=== PATIENT | male | born 1970 | race Caucasian/White ===

== ENCOUNTER 2017-07-07 06:44 | Emergency (ER) | payer SELFPAY ==
[~2017-07-07] VITALS: Ht 172.7 cm; Wt 102.5 kg
[2017-07-07 07:00] VITALS: Ht 172.7 cm; Wt 102.5 kg
[2017-07-07 08:02] VITALS: BP 144/89
== END 2017-07-07 08:02 | disposition home or self-care (01) ==
LOC: ED 06:44
DX: T45.2X5A Adverse effect of vitamins, initial encounter (principal); I10 Essential (primary) hypertension; Y92.89 Other specified places as the place of occurrence of the external cause

== ENCOUNTER 2017-08-27 20:47 | Inpatient (IN) | payer MEDICAID ==
[~2017-08-27] VITALS: Ht 172.7 cm; Wt 105.7 kg
[2017-08-27 21:18] VITALS: Ht 172.7 cm; Wt 105.7 kg
[2017-08-27 22:40] LABS: PLATELET COUNT 194 x10^3mcL (130-400); RED CELL DISTRIBUTION WIDTH 12.8 % (11.5-14.5)
[2017-08-27 22:47] LABS: BASOPHIL % 0 % (0-2)
[2017-08-27 23:02] LABS: CALCIUM 8.9 mg/dL (8.5-10.1); CARBON DIOXIDE 23.4 mmol/L (21-32); CHLORIDE SERUM 101 mmol/L (98-107); CREATININE SERUM 1.1 mg/dL (0.7-1.3); GFR1 > 60 mL/min; GLUCOSE SERUM 263 mg/dL (74-106); POTASSIUM SERUM 5.4 mmol/L (3.5-5.1); SODIUM SERUM 135 mmol/L (136-145)
[2017-08-27 23:06] LABS: ALBUMIN 3.9 g/dL (3.4-5.0); ALKALINE PHOSPHATASE 85 U/L (46-116); ALT/SGPT 32 U/L (16-63); AST/SGOT 18 U/L (15-37); BILIRUBIN TOTAL 0.7 mg/dL (0.20-1.00); LIPASE 63 IU/L (73-393); TOTAL PROTEIN, SERUM 7.8 g/dL (6.4-8.2)
[2017-08-28] MEDS ORDERED: DICLOXACILLIN500 MG PO (02:44)
[2017-08-28] MEDS ORDERED: SUDOGEST60 MG PO (02:44)
[2017-08-28 04:06] LABS: T3 TOTAL 0.95 ng/mL
[2017-08-28 04:08] LABS: FREE T4 0.95 ng/dL (0.76-1.46); FREE THYROXINE INDEX 2.5 ug/dL (1.4-4.5); T4(THYROXINE) 7.8 ug/dL (4.7-13.3)
[2017-08-28 04:29] VITALS: BP 132/87
[2017-08-28 04:31] LABS: MAGNESIUM 2.3 mg/dL (1.8-2.4)
[2017-08-28 04:34] LABS: CHOLESTEROL/HDL RATIO 4.1
[2017-08-28 05:51] LABS: BASOPHIL % 0.2 % (0-2); PLATELET COUNT 194 x10^3mcL (130-400); RED CELL DISTRIBUTION WIDTH 12.9 % (11.5-14.5)
[2017-08-28 06:10] LABS: CALCIUM 8.4 mg/dL (8.5-10.1); CARBON DIOXIDE 23.2 mmol/L (21-32); CHLORIDE SERUM 103 mmol/L (98-107); CREATININE SERUM 0.9 mg/dL (0.7-1.3); GFR1 > 60 mL/min; GLUCOSE SERUM 159 mg/dL (74-106); POTASSIUM SERUM 3.9 mmol/L (3.5-5.1); SODIUM SERUM 134 mmol/L (136-145)
[2017-08-28 06:35] LABS: microscopic required? NO
[2017-08-28 07:51] LABS: UA SPECIFIC GRAVITY 1.015 (1.005-1.035); urine erythrocyte NEGATIVE (NEGATIVE)
[2017-08-28 08:43] LABS: AMPHETAMINE QUAL UR NONE DETECTED (NEG <=1000)
[2017-08-28 08:48] VITALS: BP 128/80
[2017-08-28 12:41] VITALS: BP 111/70
[2017-08-28 16:35] VITALS: BP 125/78
[2017-08-28 20:53] VITALS: BP 98/63
[2017-08-29 05:48] VITALS: BP 96/65
[2017-08-29 07:05] LABS: CARBON DIOXIDE 25.9 mmol/L (21-32); CHLORIDE SERUM 107 mmol/L (98-107); CREATININE SERUM 0.9 mg/dL (0.7-1.3); GFR1 > 60 mL/min; GLUCOSE SERUM 106 mg/dL (74-106); PHOSPHOROUS 4.4 mg/dL (2.5-4.9); POTASSIUM SERUM 3.7 mmol/L (3.5-5.1); SODIUM SERUM 142 mmol/L (136-145)
[2017-08-29 07:13] LABS: BASOPHIL % 0.5 % (0-2); PLATELET COUNT 185 x10^3mcL (130-400)
[2017-08-29 09:49] VITALS: BP 102/63
[2017-08-29] MEDS ORDERED: MECLIZINE HCL12.5 MG PO (11:28)
[2017-08-29 11:35] VITALS: BP 102/63
== END 2017-08-29 12:45 | disposition home or self-care (01) | DRG 58 ==
LOC: ED 20:47 → DU 08-28 03:11
PROVIDERS: Emergency Medicine; Family Medicine
DX: D32.0 Benign neoplasm of cerebral meninges (principal); E87.2 Acidosis; G90.8 Other disorders of autonomic nervous system; E87.1 Hypo-osmolality and hyponatremia; E87.5 Hyperkalemia; E83.39 Other disorders of phosphorus metabolism; I65.22 Occlusion and stenosis of left carotid artery; J32.9 Chronic sinusitis, unspecified; K21.9 Gastro-esophageal reflux disease without esophagitis; R73.03 Prediabetes; E78.5 Hyperlipidemia, unspecified; F17.210 Nicotine dependence, cigarettes, uncomplicated; F10.10 Alcohol abuse, uncomplicated; E66.3 Overweight; Z68.35 Body mass index [BMI] 35.0-35.9, adult; Z88.8 Allergy status to other drugs, medicaments and biological substances
CPT/HCPCS: 82962; 83880; 84439; A9577; J1885; J2765; J7030; J8597; Q0092; Q0162

== ENCOUNTER 2017-09-01 17:14 | Emergency (ER) | payer MEDICAID ==
[~2017-09-01] VITALS: Ht 172.7 cm; Wt 104.3 kg
[~2017-09-01 17:14] MED LIST: DICLOXACILLIN500 MG PO; MECLIZINE HCL12.5 MG PO; SUDOGEST60 MG PO
[2017-09-01 17:20] VITALS: Ht 172.7 cm; Wt 104.3 kg
[2017-09-01 18:13] LABS: BASOPHIL % 0.5 % (0-2); PLATELET COUNT 206 x10^3mcL (130-400); RED CELL DISTRIBUTION WIDTH 12.5 % (11.5-14.5)
[2017-09-01 18:19] LABS: CALCIUM 8.2 mg/dL (8.5-10.1); CARBON DIOXIDE 25.3 mmol/L (21-32); CHLORIDE SERUM 101 mmol/L (98-107); CREATININE SERUM 0.9 mg/dL (0.7-1.3); GFR1 > 60 mL/min; GLUCOSE SERUM 163 mg/dL (74-106); POTASSIUM SERUM 3.6 mmol/L (3.5-5.1); SODIUM SERUM 136 mmol/L (136-145)
[2017-09-01 18:24] LABS: ALBUMIN 3.7 g/dL (3.4-5.0); ALKALINE PHOSPHATASE 77 U/L (46-116); ALT/SGPT 45 U/L (16-63); AST/SGOT 21 U/L (15-37); BILIRUBIN TOTAL 0.65 mg/dL (0.20-1.00); TOTAL PROTEIN, SERUM 7.1 g/dL (6.4-8.2)
[2017-09-01 18:28] LABS: microscopic required? NO
[2017-09-01 18:35] LABS: UA SPECIFIC GRAVITY 1.015 (1.005-1.035); urine erythrocyte NEGATIVE (NEGATIVE)
[2017-09-01 19:00] VITALS: BP 131/89
== END 2017-09-01 19:00 | disposition home or self-care (01) ==
LOC: ED 17:14
PROVIDERS: Emergency Medicine
DX: R55 Syncope and collapse (principal); G93.89 Other specified disorders of brain; R00.2 Palpitations; R07.89 Other chest pain; K21.9 Gastro-esophageal reflux disease without esophagitis; Z88.8 Allergy status to other drugs, medicaments and biological substances
CPT/HCPCS: 36415